=== PATIENT | male | born 1960 | race Caucasian/White ===

== ENCOUNTER 2025-05-07 06:39 | Day surgery (SDC) | payer MEDICARE ==
[2025-05-07 07:42] VITALS: BP 131/86; TEMP 98.6
[2025-05-07] MEDS ORDERED: PHENYLEPHRINE-NS 100 MCG/ML 10 ML SYRINGE ONE (07:45)
[2025-05-07] MEDS ORDERED: Lidocaine 1% (PF) 30 ML VIAL ONE (07:45)
[2025-05-07] MEDS ORDERED: Heparin 10,000 UNITS/ 10 ML VIAL ONE (07:45)
[2025-05-07 08:07] LABS: #Basophils 0.03 10x3/uL (0.0-0.2); #Eosinophils 0.22 10x3/uL (0.0-0.5); #Monocytes 0.52 10x3/uL (0.0-1.1); #Neutrophils 2.92 10x3/uL (1.5-8.4); %Basophils 0.6 % (0.0-2.0); %Eosinophils 4.5 % (0.0-6.0); %Lymphocytes 24.9 % (18.0-47.0); %Monocytes 10.5 % (0.0-10.0); %Neutrophils 59.3 % (40.0-75.0); Hematocrit 38.9 % (38.8-50.0); Hemoglobin 12.7 g/dL (13.5-17.5); Mean Corpuscular Hemoglobin 29.6 pg (27.0-33.0); Mean Corpuscular Volume 90.7 fL (81.2-95.1); Platelet Count 147 10x3/uL (150-450); Red Blood Cell (RBC) Count 4.29 10x6/uL (4.32-5.72); White Blood Cell (WBC) Count 4.93 10x3/uL (3.5-10.5)
[2025-05-07 08:26] LABS: Anion Gap 12 mmol/L (10-20); BUN (Urea Nitrogen) 28 mg/dL (8.4-25.7); Calc. Creatinine Clearance 79 mL/min (70-130); Calcium 9.0 mg/dL (7.8-10.44); Carbon Dioxide 23 mmol/L (23-31); Chloride 111 mmol/L (98-107); Glucose 100 mg/dL (80-115); Potassium 4.3 mmol/L (3.5-5.1); Sodium 142 mmol/L (136-145)
[2025-05-07 08:37] LABS: INR-International Normal Ratio 0.9; PTT 24.3 sec (22.0-33.0); Prothrombin Time 10.2 sec (9.5-12.1)
[2025-05-07] MEDS ORDERED: Adenosine 6 mg (2 mL) VIAL ONE (08:50)
[2025-05-07] MEDS ORDERED: Nitroglycerin 50 MG/250 ML BOT 0 ML ONE (08:50)
[2025-05-07] MEDS ORDERED: Iopamidol 300 61% 100 ML VIAL FS ONE (10:42)
[2025-05-08] MEDS ORDERED: PNEUMOC 20-VAL CONJ-DIP CRM/PF 0.5 ML SYRINGE IM ONE (09:00)
[2025-05-08] MEDS ORDERED: FLU (Fluad Triv) 25-26 (65UP)PF 45 MCG/0.5 ML Syringe IM ONE (09:00)
== END 2025-05-07 14:10 | disposition home or self-care (01) ==
LOC: CSHSDC 06:39
PROVIDERS: ATTEND Internal Medicine Cardiovascular Disease
PROC: B205YZZ Plain Radiography of Left Heart using Other Contrast (ICD-10-PCS; principal; 2025-05-07)
DX: I25.10 Atherosclerotic heart disease of native coronary artery without angina pectoris (principal); R06.09 Other forms of dyspnea; I25.84 Coronary atherosclerosis due to calcified coronary lesion; Z88.8 Allergy status to other drugs, medicaments and biological substances
CPT/HCPCS: 71046; 80048; 85025; 85610; 85730; 92978; 92979 ×2; 93005; 93459; C1753; C1760; C1769; C1887; J1644; J2003; J2250; J2720; Q9967; 99152; 99153; J0153; J0461